=== PATIENT | female | born 1980 | race American Indian/Alaskan Native ===

== ENCOUNTER 2017-06-25 23:36 | Inpatient (IN) | payer OTHER ==
[2017-06-26 00:26] LABS: Basophils % (Auto) 0.4 % (0.0-1.8); Eosinophils % (Auto) 2.5 % (0.0-4.3); Hemoglobin 13.6 gm/dl (10.1-14.3); Mean Corpuscular HGB Conc 33 % (30-34); Mean Corpuscular Hemoglobin 30 pg (28-32); Mean Corpuscular Volume 92 fl (79-97); Platelet Count 187 K/mm3 (140-440); Red Blood Count 4.48 M/mm3 (3.65-5.03); Red Cell Distribution Width 13.2 % (13.2-15.2); White Blood Count 6.8 K/mm3 (4.5-11.0)
[2017-06-26 00:35] LABS: INR 0.99 (0.87-1.13); Partial Thromboplastin Time 29.1 Sec. (24.2-36.6)
[2017-06-26 00:55] LABS: Alanine Aminotransferase 10 units/L (7-56); Albumin 4.4 g/dL (3.9-5); Albumin/Globulin Ratio 1.1 %; Alkaline Phosphatase 75 units/L (35-129); Anion Gap 20 mmol/L; BUN/Creatinine Ratio 12.85; Blood Urea Nitrogen 9 mg/dL (7-17); Calcium 9.7 mg/dL (8.4-10.2); Carbon Dioxide 21 mmol/L (22-30); Chloride 100.5 mmol/L (98-107); Glucose 126 mg/dL (65-100); Lipase 34 units/L (13-60); Potassium 3.5 mmol/L (3.6-5.0); Sodium 138 mmol/L (137-145); Total Protein 8.5 g/dL (6.3-8.2)
[2017-06-26] MEDS ORDERED: NACL 0.9% 1000 ML 1,000 ML ONE ×2 (01:22→10:37)
[2017-06-26] MEDS ORDERED: NACL 0.9% 1000 ML 1,000 ML IV ONE ×3 (01:23→05:34)
[2017-06-26] MEDS ORDERED: K-DUR PO ONE (03:24)
[2017-06-26 03:39] LABS: Urine Drugs of Abuse Note Disclamer
[2017-06-26 03:56] LABS: Bilirubin,Urine NEG (Negative); Blood,Urine NEG (Negative); Ketones,Urine TR mg/dL (Negative); Leukocyte Esterase,Urine NEG (Negative); Mucus,Urine 3+ /HPF; Nitrite,Urine NEG (Negative); Protein,Urine <15 mg/dL mg/dL (Negative)
[2017-06-26] MEDS ORDERED: NACL ONE (03:58)
--- NOTE | 2017-06-26 05:23 | Emergency Department Report ---
ED Palpitations HPI - General Chief Complaint: Abdominal Pain Stated Complaint: YAN Time Seen by Provider: 06/26/17 03:02 Source: patient Mode of arrival: Ambulatory Limitations: No Limitations - History of Present Illness Initial Comments: 36-year-old female witha past medical history presents to the hospital complaining of shortness breath that started one half hour prior to arrival. Patient reports that she had epigastric and bilateral upper abdomen tightness and felt like "everything was shutting down". Apparently patient has had upper abdominal discomfort for the last 3 days that was intermittent. No nausea, vomiting, diarrhea, or diaphoresis reported. She reports mushy stools approximately 3 times a day the last several days. She denies calf tenderness, edema, recent travel, or history of PE/DVT. No significant pain reported at this time. Patient denies any chest pain. She does complain that her toes appeared to be numb. Patient noted to be significantly tachycardic upon arrival to the ED - Related Data Allergies Allergy/AdvReac Type Severity Reaction Status Date / Time No Known Allergies Allergy Verified 06/25/17 23:50 ED Review of Systems ROS: Stated complaint: YAN Other details as noted in HPI Comment: All other systems reviewed and negative Other: Constitutional: No fevers chills or weight loss Eyes: No eye pain visual changes or discharge ENT: No ear pain or throat pain Neck: Denies pain Respiratory: Denies cough wheezing Cardiovascular: as per hpi GI: As per HPI : Denies dysuria Musculoskeletal: Denies back pain Skin: Denies rash, lesions, erythema Neurologic: Denies headache, numbness, weakness Psychiatric: Denies suicidal ideation, hallucinations ED Past Medical Hx - Past Medical History Previous Medical History?: No - Surgical History Past Surgical History?: No - Social History Smoking Status: Never Smoker Substance Use Type: Alcohol ED Physical Exam - General Limitations: No Limitations - Other Other exam information: General: No limitations, patient is alert in no acute distress Head exam: Atraumatic, normocephalic Eyes exam: Normal appearance, pupils equal reactive to light, extraocular movements intact ENT: Moist mucous membrane, normal oropharynx Neck exam: Normal inspection, full range of motion, no meningismus nontender Respiratory exam: Clear to auscultation bilateral, no wheezes, rales, crackles Cardiovascular: Tachycardic regular rhythm Abdomen: Soft, nondistended, and nontender, with normal bowel sounds, no rebound, or guarding Extremity: Full range of motion normal inspection no deformity Back: Normal Inspection, full range of motion, no tenderness Neurologic: Alert, oriented x3, cranial nerves intact, no motor or sensory deficit Psychiatric: normal affect, normal mood Skin: Warm, dry, intact ED Course Vital Signs 06/25/17 06/26/17 06/26/17 23:50 01:13 03:37 Temperature 98.2 F 99.1 F Pulse Rate 135 H 138 H 127 H Respiratory 28 H 14 17 Rate Blood Pressure 156/99 136/93 Blood Pressure 136/91 [Right] O2 Sat by Pulse 100 100 99 Oximetry 06/26/17 03:50 Temperature Pulse Rate 128 H Respiratory Rate Blood Pressure Blood Pressure [Right] O2 Sat by Pulse Oximetry - Reevaluation(s) Reevaluation #1: 06/26/17 05:27 After 2 L of normal saline patient remains tachycardic 06/26/17 05:34 Heart rate now 117. Patient states she's feels scared like something is wrong but she feels much better than initial presentation. I would like to try Ativan however, patient is driving. A third liter since heart rate appears to be responding to IV fluid. Awaiting CT results ED Medical Decision Making - Lab Data Result diagrams: 06/26/17 00:05 06/26/17 00:05 Lab Results 06/26/17 06/26/17 06/26/17 Range/Units 00:05 00:05 00:05 WBC 6.8 (4.5-11.0) K/mm3 RBC 4.48 (3.65-5.03) M/mm3 Hgb 13.6 (10.1-14.3) gm/dl Hct 41.0 (30.3-42.9) % MCV 92 (79-97) fl MCH 30 (28-32) pg MCHC 33 (30-34) % RDW 13.2 (13.2-15.2) % Plt Count 187 (140-440) K/mm3 Lymph % (Auto) 51.8 H (13.4-35.0) % Saunders % (Auto) 6.8 (0.0-7.3) % Eos % (Auto) 2.5 (0.0-4.3) % Baso % (Auto) 0.4 (0.0-1.8) % Lymph # 3.5 (1.2-5.4) K/mm3 Saunders # 0.5 (0.0-0.8) K/mm3 Eos # 0.2 (0.0-0.4) K/mm3 Baso # 0.0 (0.0-0.1) K/mm3 Seg Neutrophils % 38.5 L (40.0-70.0) % Seg Neutrophils # 2.6 (1.8-7.7) K/mm3 PT 13.6 (12.2-14.9) Sec. INR 0.99 (0.87-1.13) APTT 29.1 (24.2-36.6) Sec. D-Dimer (0-234) ng/mlDDU Sodium 138 (137-145) mmol/L Potassium 3.5 L (3.6-5.0) mmol/L Chloride 100.5 (98-107) mmol/L Carbon Dioxide 21 L (22-30) mmol/L Anion Gap 20 mmol/L BUN 9 (7-17) mg/dL Creatinine 0.7 (0.7-1.2) mg/dL Estimated GFR > 60 ml/min BUN/Creatinine Ratio 12.85 % Glucose 126 H (65-100) mg/dL Calcium 9.7 (8.4-10.2) mg/dL Magnesium (1.7-2.3) mg/dL Total Bilirubin 0.70 (0.1-1.2) mg/dL AST 18 (5-40) units/L ALT 10 (7-56) units/L Alkaline Phosphatase 75 (35-129) units/L Troponin T < 0.010 (0.00-0.029) ng/mL Total Protein 8.5 H (6.3-8.2) g/dL Albumin 4.4 (3.9-5) g/dL Albumin/Globulin Ratio 1.1 % Lipase 34 (13-60) units/L TSH (0.270-4.200) mlU/mL Free T4 (0.76-1.46) ng/dL HCG, Qual (Negative) Urine Color (Yellow) Urine Turbidity (Clear) Urine pH (5.0-7.0) Ur Specific [place] (1.003-1.030) Urine Protein (Negative) mg/dL Urine Glucose (UA) (Negative) mg/dL Urine Ketones (Negative) mg/dL Urine Blood (Negative) Urine Nitrite (Negative) Urine Bilirubin (Negative) Urine Urobilinogen (<2.0) mg/dL Ur Leukocyte Esterase (Negative) Urine WBC (Auto) (0.0-6.0) /HPF Urine RBC (Auto) (0.0-6.0) /HPF U Epithel Cells (Auto) (0-13.0) /HPF Urine Mucus /HPF Urine Opiates Screen Urine Methadone Screen Ur Barbiturates Screen Ur Phencyclidine Scrn Ur Amphetamines Screen U Benzodiazepines Scrn Urine Cocaine Screen U Marijuana (THC) Screen Drugs of Abuse Note 06/26/17 06/26/17 06/26/17 Range/Units 00:05 02:55 03:20 WBC (4.5-11.0) K/mm3 RBC (3.65-5.03) M/mm3 Hgb (10.1-14.3) gm/dl Hct (30.3-42.9) % MCV (79-97) fl MCH (28-32) pg MCHC (30-34) % RDW (13.2-15.2) % Plt Count (140-440) K/mm3 Lymph % (Auto) (13.4-35.0) % Saunders % (Auto) (0.0-7.3) % Eos % (Auto) (0.0-4.3) % Baso % (Auto) (0.0-1.8) % Lymph # (1.2-5.4) K/mm3 Saunders # (0.0-0.8) K/mm3 Eos # (0.0-0.4) K/mm3 Baso # (0.0-0.1) K/mm3 Seg Neutrophils % (40.0-70.0) % Seg Neutrophils # (1.8-7.7) K/mm3 PT (12.2-14.9) Sec. INR (0.87-1.13) APTT (24.2-36.6) Sec. D-Dimer (0-234) ng/mlDDU Sodium (137-145) mmol/L Potassium (3.6-5.0) mmol/L Chloride (98-107) mmol/L Carbon Dioxide (22-30) mmol/L Anion Gap mmol/L BUN (7-17) mg/dL Creatinine (0.7-1.2) mg/dL Estimated GFR ml/min BUN/Creatinine Ratio % Glucose (65-100) mg/dL Calcium (8.4-10.2) mg/dL Magnesium (1.7-2.3) mg/dL Total Bilirubin (0.1-1.2) mg/dL AST (5-40) units/L ALT (7-56) units/L Alkaline Phosphatase (35-129) units/L Troponin T < 0.010 (0.00-0.029) ng/mL Total Protein (6.3-8.2) g/dL Albumin (3.9-5) g/dL Albumin/Globulin Ratio % Lipase (13-60) units/L TSH (0.270-4.200) mlU/mL Free T4 (0.76-1.46) ng/dL HCG, Qual Negative (Negative) Urine Color Yellow (Yellow) Urine Turbidity Clear (Clear) Urine pH 5.0 (5.0-7.0) Ur Specific [place] 1.028 (1.003-1.030) Urine Protein <15 mg/dl (Negative) mg/dL Urine Glucose (UA) Neg (Negative) mg/dL Urine Ketones Tr (Negative) mg/dL Urine Blood Neg (Negative) Urine Nitrite Neg (Negative) Urine Bilirubin Neg (Negative) Urine Urobilinogen 2.0 (<2.0) mg/dL Ur Leukocyte Esterase Neg (Negative) Urine WBC (Auto) 1.0 (0.0-6.0) /HPF Urine RBC (Auto) 4.0 (0.0-6.0) /HPF U Epithel Cells (Auto) 2.0 (0-13.0) /HPF Urine Mucus 3+ /HPF Urine Opiates Screen Urine Methadone Screen Ur Barbiturates Screen Ur Phencyclidine Scrn Ur Amphetamines Screen U Benzodiazepines Scrn Urine Cocaine Screen U Marijuana (THC) Screen Drugs of Abuse Note 06/26/17 06/26/17 06/26/17 Range/Units 03:20 03:20 03:20 WBC (4.5-11.0) K/mm3 RBC (3.65-5.03) M/mm3 Hgb (10.1-14.3) gm/dl Hct (30.3-42.9) % MCV (79-97) fl MCH (28-32) pg MCHC (30-34) % RDW (13.2-15.2) % Plt Count (140-440) K/mm3 Lymph % (Auto) (13.4-35.0) % Saunders % (Auto) (0.0-7.3) % Eos % (Auto) (0.0-4.3) % Baso % (Auto) (0.0-1.8) % Lymph # (1.2-5.4) K/mm3 Saunders # (0.0-0.8) K/mm3 Eos # (0.0-0.4) K/mm3 Baso # (0.0-0.1) K/mm3 Seg Neutrophils % (40.0-70.0) % Seg Neutrophils # (1.8-7.7) K/mm3 PT (12.2-14.9) Sec. INR (0.87-1.13) APTT (24.2-36.6) Sec. D-Dimer 545.72 H (0-234) ng/mlDDU Sodium (137-145) mmol/L Potassium (3.6-5.0) mmol/L Chloride (98-107) mmol/L Carbon Dioxide (22-30) mmol/L Anion Gap mmol/L BUN (7-17) mg/dL Creatinine (0.7-1.2) mg/dL Estimated GFR ml/min BUN/Creatinine Ratio % Glucose (65-100) mg/dL Calcium (8.4-10.2) mg/dL Magnesium (1.7-2.3) mg/dL Total Bilirubin (0.1-1.2) mg/dL AST (5-40) units/L ALT (7-56) units/L Alkaline Phosphatase (35-129) units/L Troponin T 0.010 (0.00-0.029) ng/mL Total Protein (6.3-8.2) g/dL Albumin (3.9-5) g/dL Albumin/Globulin Ratio % Lipase (13-60) units/L TSH 2.170 (0.270-4.200) mlU/mL Free T4 1.18 (0.76-1.46) ng/dL HCG, Qual (Negative) Urine Color (Yellow) Urine Turbidity (Clear) Urine pH (5.0-7.0) Ur Specific [place] (1.003-1.030) Urine Protein (Negative) mg/dL Urine Glucose (UA) (Negative) mg/dL Urine Ketones (Negative) mg/dL Urine Blood (Negative) Urine Nitrite (Negative) Urine Bilirubin (Negative) Urine Urobilinogen (<2.0) mg/dL Ur Leukocyte Esterase (Negative) Urine WBC (Auto) (0.0-6.0) /HPF Urine RBC (Auto) (0.0-6.0) /HPF U Epithel Cells (Auto) (0-13.0) /HPF Urine Mucus /HPF Urine Opiates Screen Urine Methadone Screen Ur Barbiturates Screen Ur Phencyclidine Scrn Ur Amphetamines Screen U Benzodiazepines Scrn Urine Cocaine Screen U Marijuana (THC) Screen Drugs of Abuse Note 06/26/17 06/26/17 Range/Units 03:20 03:20 WBC (4.5-11.0) K/mm3 RBC (3.65-5.03) M/mm3 Hgb (10.1-14.3) gm/dl Hct (30.3-42.9) % MCV (79-97) fl MCH (28-32) pg MCHC (30-34) % RDW (13.2-15.2) % Plt Count (140-440) K/mm3 Lymph % (Auto) (13.4-35.0) % Saunders % (Auto) (0.0-7.3) % Eos % (Auto) (0.0-4.3) % Baso % (Auto) (0.0-1.8) % Lymph # (1.2-5.4) K/mm3 Saunders # (0.0-0.8) K/mm3 Eos # (0.0-0.4) K/mm3 Baso # (0.0-0.1) K/mm3 Seg Neutrophils % (40.0-70.0) % Seg Neutrophils # (1.8-7.7) K/mm3 PT (12.2-14.9) Sec. INR (0.87-1.13) APTT (24.2-36.6) Sec. D-Dimer (0-234) ng/mlDDU Sodium (137-145) mmol/L Potassium (3.6-5.0) mmol/L Chloride (98-107) mmol/L Carbon Dioxide (22-30) mmol/L Anion Gap mmol/L BUN (7-17) mg/dL Creatinine (0.7-1.2) mg/dL Estimated GFR ml/min BUN/Creatinine Ratio % Glucose (65-100) mg/dL Calcium (8.4-10.2) mg/dL Magnesium 1.90 (1.7-2.3) mg/dL Total Bilirubin (0.1-1.2) mg/dL AST (5-40) units/L ALT (7-56) units/L Alkaline Phosphatase (35-129) units/L Troponin T (0.00-0.029) ng/mL Total Protein (6.3-8.2) g/dL Albumin (3.9-5) g/dL Albumin/Globulin Ratio % Lipase (13-60) units/L TSH (0.270-4.200) mlU/mL Free T4 (0.76-1.46) ng/dL HCG, Qual (Negative) Urine Color (Yellow) Urine Turbidity (Clear) Urine pH (5.0-7.0) Ur Specific [place] (1.003-1.030) Urine Protein (Negative) mg/dL Urine Glucose (UA) (Negative) mg/dL Urine Ketones (Negative) mg/dL Urine Blood (Negative) Urine Nitrite (Negative) Urine Bilirubin (Negative) Urine Urobilinogen (<2.0) mg/dL Ur Leukocyte Esterase (Negative) Urine WBC (Auto) (0.0-6.0) /HPF Urine RBC (Auto) (0.0-6.0) /HPF U Epithel Cells (Auto) (0-13.0) /HPF Urine Mucus /HPF Urine Opiates Screen Presumptive negative Urine Methadone Screen Presumptive negative Ur Barbiturates Screen Presumptive negative Ur Phencyclidine Scrn Presumptive negative Ur Amphetamines Screen Presumptive negative U Benzodiazepines Scrn Presumptive negative Urine Cocaine Screen Presumptive negative U Marijuana (THC) Screen Presumptive negative Drugs of Abuse Note Disclamer - EKG Data -: EKG Interpreted by Me (sinus tach rate [address] elevation or T-wave inversion) - EKG Data When compared to previous EKG there are: previous EKG unavailable - Radiology Data Radiology results: report reviewed, image reviewed (chest x-ray PA and lateral: No acute findings, right upper lung metallic foreign body does not appear to be within lung possible artifact) ct angio chest: naf CT abdomen and pelvis IV contrast: No acute findings - Medical Decision Making Cause of tachycardia unknown. Anxiety is in the differential. Patient will be admitted for further evaluation. Hospitalist informed to requests brige orders - Differential Diagnosis PE, anxiety, thyroid disease, infection, anemia Critical Care Time: No Critical care attestation.: If time is entered above; I have spent that time in minutes in the direct care of this critically ill patient, excluding procedure time. ED Disposition Clinical Impression: Sinus tachycardia Disposition: DC-[id number] OP ADMIT IP TO THIS HOSP Is pt being admited?: Yes Condition: Stable Time of Disposition: 06:06 (Dr Colby/hosp)
--- NOTE | 2017-06-26 05:57 | Cat Scan Report ---
FINAL REPORT PROCEDURE: CT ANGIO CHEST TECHNIQUE: Computerized tomographic angiography of the chest was performed after the IV injection of iodinated nonionic contrast including image processing. The image data was postprocessed using 2-dimensional multiplanar reformatted (MPR) and 3-dimensional (MIP and/or volume rendered) techniques. HISTORY: elevated ddimer, sob COMPARISON: No prior studies are available for comparison. FINDINGS: Heart and pericardium: Normal. Thoracic aorta: Normal. Pulmonary vasculature: Normal. Lymph nodes: No enlarged thoracic lymph nodes. Lungs: Normal. Pleural space: No effusion, thickening, or pneumothorax. Musculoskeletal structures: No significant abnormality. Upper abdominal structures: No significant abnormality. There is a metallic foreign body in the right anterior chest wall. IMPRESSION: There is no thoracic aortic aneurysm or dissection. There is no pulmonary embolism. There is no acute lung disease.
--- NOTE | 2017-06-26 06:08 | Cat Scan Report ---
FINAL REPORT PROCEDURE: CT ABDOMEN PELVIS W CON TECHNIQUE: Computerized axial tomography of the abdomen and pelvis was performed after the IV injection of iodinated nonionic contrast. HISTORY: upper abd pain, tachycardia COMPARISON: No prior studies are available for comparison. FINDINGS: Visualized lower thorax: No significant abnormality. Liver: Normal size and attenuation. Spleen: Normal size and attenuation. Gallbladder and biliary system: Normal. Pancreas: Normal. Adrenals: Normal. Kidneys: Normal. GI tract: There is no bowel obstruction, colitis or enteritis. The appendix is normal.. Lymph nodes and mesentery: Normal. Vasculature: Normal. Bladder: Normal. Reproductive organs: Uterus and ovaries are unremarkable.. Peritoneum: There is no ascites, free air, abscess or adenopathy. There is minimal nonspecific free pelvic fluid.. Musculoskeletal structures: No significant abnormality. Other: There is a small ventral hernia containing fat only.. IMPRESSION: No acute intra-abdominal process is identified.
--- NOTE | 2017-06-26 07:19 | Admit Criteria Form ---
Admission Criteria Documentation: TELEMETRY CARE Telemetry Admission Guidelines (Place 'X' for any and all applicable criteria): Admission to telemetry [A] may be indicated for ANY ONE of the following(1)(2)(3 )(4)(5): [X]I. Cardiac disease, including ANY ONE of the following (9)(10)(11)(12)(13 ): [ ]a) Postacute NH [ ]b) Low-risk patients with ST-segment elevation NH who have undergone successful percutaneous coronary intervention [ ]c) Unstable angina [ ]d) Suspected NH (until it is ruled out) [ ]e) Post cardiac surgery (first 48 to 72 hours unless complications occur) [X]f) Acute arrhythmias (including significant tachycardia or bradycardia) [B] [ ]g) Firing of an implantable cardioverter defibrillator [C] [ ]h) Suspected pacemaker or implantable cardioverter defibrillator malfunction (10) [ ]i) New administration or adjustment of an antiarrhythmic drug [D ] [ ]j) Child admitted for acute congestive heart failure [ ]j) Long QT syndrome [ ]k) Advanced heart block (eg, second-degree Mobitz type II, third- degree heart block) [ ]l) Acute myocarditis or pericarditis [ ]m) Short-term (ambulatory or inpatient) monitoring after a cardiac procedure as indicated by ANY ONE of the following [E]: [ ]i) Electrophysiologic studies [ ]ii) Percutaneous coronary intervention with stent placement [ ]iii) Pacemaker placement with cardiac conduction defect [ ]iv) Implantable cardiac defibrillator placement [ ]II. Drug overdose or poisoning with substance that causes arrhythmias or QT prolongation (eg, phenothiazines, sympathomimetic agents, cyclic antidepressants, digitalis, antiarrhythmic drugs)(15) [ ]III. Short-term (ambulatory or inpatient) monitoring after therapeutic or diagnostic procedure requiring conscious sedation or anesthesia (eg, endoscopy, elective cardioversion) [ ]IV. Acute cerebrovascular even[F](18) [ ]V. Massive blood transfusion (eg, at least 10 units of packed red blood cells in 24 hours) [ ]. Variceal bleeding after endoscopy, sclerotherapy, or IV vasopressin [ ]VII. Uncorrected electrolyte abnormalities associated with an increased risk of dangerous arrhythmia [G]; examples include [ ]a) Hyperkalemia with attributable ECG changes [ ]b) Potassium greater than 6.5 mmol/L (mEq/L) in a patient without history of chronic renal disease [ ]c) Prolonged QT attributed to hypokalemia, hypomagnesemia, or hypocalcemia [ ]VIII.Unexplained syncope or other neurologic event suspected of being due to arrhythmia due to a finding that increases risk; examples include(19)(20)(21): [ ]a) High-risk ECG findings (eg, bifascicular block, bradycardia, abnormal QT interval, ventricular pre- excitation) [ ]b) History of previous syncope due to arrhythmia [ ]c) Abnormal ventricular function (eg, reduced ejection fraction ) [ ]d) Exertional or supine syncope [ ]e) Concerning syncope characteristics (eg, sudden loss of consciousness without prodrome) [ ]f) Family history of sudden [ ]g) Use of arrhythmogenic medication [ ]h) Suspected cardiac ischemia [ ]i) Known channelopathy (eg, long QT syndrome, Brugada syndrome, or catecholaminergic paroxysmal ventricular tachycardia) [ ]j) Known structural heart disease (eg, hypertrophic cardiomyopathy , severe valvular disease) [ ]k) Palpitations preceding syncope The original [employer] content created by [employer] has been revised. The portions of the content which have been revised are identified through the use of italic text or in bold, and [facility] has neither reviewed nor approved the modified material. All other unmodified content is copyright [employer]. Please see references footnoted in the original [employer] edition 2016 Admission Criteria Met: Yes
--- NOTE | 2017-06-26 07:29 | XRay Report ---
Chest 2 views: History: Palpitation. Findings: Normal cardiomediastinal silhouette. Trachea is midline. No consolidation, pneumothorax or pleural effusion. Impression: No acute cardiopulmonary findings.
--- NOTE | 2017-06-26 08:51 | History and Physical Report ---
<MILAGROS CLEANING - Last Filed: 06/26/17 14:58> History of Present Illness Date of examination: 06/26/17 Date of admission: 06/26/2017 Chief complaint: Shortness of breath and lower back pain History of present illness: 36-year-old female no know past medical history presents to the hospital complaining of shortness breath that started one half hour prior to arrival. Patient reported epigastric abdominal tightness and shortness of breath. The abdominal tightness has been gradually worsening over the past 2-3 days. She located in the epigastric region and right upper quadrant of the abdomen. It does not radiate. The pain is relatively constant throughout the day and night but does vary in severity. She rates the pain as 6/10 at its worst. She has not tried taking any medicines to relieve the tightness. The pain is not alleviated with rest. She denies nausea, vomiting, diarrhea, or diaphoresis. She denies calf tenderness, edema, recent travel, or history of PE/DVT. Patient denies any chest pain. Patient noted to be significantly tachycardia upon arrival to the ED Past History Past Medical History: No medical history Past Surgical History: No surgical history Social history: alcohol abuse. denies: smoking Family history: CAD, hypertension Medications and Allergies Allergies Allergy/AdvReac Type Severity Reaction Status Date / Time Penicillins Allergy Intermediate Hives Verified 06/26/17 20:34 Home Medications Medication Instructions Recorded Confirmed Last Taken Type No Known Home Medications [No 06/26/17 06/26/17 Unknown History Reported Home Medications] Review of Systems Constitutional: no weight loss, no weight gain, no fever, no chills Ears, nose, mouth and throat: deferred, no ear pain, no ear discharge, no decreased hearing, no nose pain, no nasal congestion, no nasal discharge Breasts: no change in shape, no swelling Cardiovascular: shortness of breath, no chest pain, no orthopnea, no palpitations, no syncope, no lightheadedness Respiratory: no cough, no cough with sputum, no excessive sputum, no hemoptysis , no dyspnea on exertion Gastrointestinal: no vomiting, no diarrhea, no constipation, no change in bowel habits Genitourinary Female: no dysmenorrhea, no pelvic pain, no flank pain, no menorrhagia, no dysuria, no urinary frequency Menstruation: no premenarcheal, no post hysterectomy, no ammenorrhea Rectal: no pain, no incontinence Musculoskeletal: no neck stiffness, no neck pain, no shooting arm pain, no arm numbness/tingling Integumentary: no pruritis, no redness, no sores, no wounds Neurological: no paralysis, no weakness, no parathesias Psychiatric: no change in sleep habits, no sleep disturbances, no insomnia Endocrine: no cold intolerance, no heat intolerance, no polyphagia Hematologic/Lymphatic: no easy bruising, no easy bleeding Allergic/Immunologic: no urticaria, no allergic rhinitis Exam - Constitutional Vitals: Temp Pulse Resp BP Pulse Ox 98.6 F 126 H 20 141/82 99 06/26/17 07:35 06/26/17 07:35 06/26/17 07:35 06/26/17 07:10 06/26/17 07:35 General appearance: Present: no acute distress - EENT Eyes: Present: PERRL ENT: hearing intact - Neck Neck: Present: supple - Respiratory Respiratory effort: normal Respiratory: bilateral: CTA - Cardiovascular Heart rate: 97 Rhythm: regular Heart Sounds: Present: S1 & S2 - Extremities Extremities: no ischemia Peripheral Pulses: within normal limits - Abdominal General gastrointestinal: Present: soft, non-tender Female genitourinary: Present: deferred - Rectal Rectal Exam: deferred - Integumentary Integumentary: Present: clear, warm, dry - Musculoskeletal Musculoskeletal: strength equal bilaterally - Psychiatric Psychiatric: appropriate mood/affect - Neurologic Neurologic: CNII-XII intact - Allied Health Allied health notes reviewed: nursing Results - Labs CBC & Chem 7: 06/26/17 00:05 06/26/17 00:05 Labs: Laboratory Last Values WBC 6.8 K/mm3 (4.5-11.0) 06/26/17 00:05 RBC 4.48 M/mm3 (3.65-5.03) 06/26/17 00:05 Hgb 13.6 gm/dl (10.1-14.3) 06/26/17 00:05 Hct 41.0 % (30.3-42.9) 06/26/17 00:05 MCV 92 fl (79-97) 06/26/17 00:05 MCH 30 pg (28-32) 06/26/17 00:05 MCHC 33 % (30-34) 06/26/17 00:05 RDW 13.2 % (13.2-15.2) 06/26/17 00:05 Plt Count 187 K/mm3 (140-440) 06/26/17 00:05 Lymph % (Auto) 51.8 % (13.4-35.0) H 06/26/17 00:05 [place] % (Auto) 6.8 % (0.0-7.3) 06/26/17 00:05 Eos % (Auto) 2.5 % (0.0-4.3) 06/26/17 00:05 Baso % (Auto) 0.4 % (0.0-1.8) 06/26/17 00:05 Lymph # 3.5 K/mm3 (1.2-5.4) 06/26/17 00:05 [place] # 0.5 K/mm3 (0.0-0.8) 06/26/17 00:05 Eos # 0.2 K/mm3 (0.0-0.4) 06/26/17 00:05 Baso # 0.0 K/mm3 (0.0-0.1) 06/26/17 00:05 Seg Neutrophils % 38.5 % (40.0-70.0) L 06/26/17 00:05 Seg Neutrophils # 2.6 K/mm3 (1.8-7.7) 06/26/17 00:05 PT 13.6 Sec. (12.2-14.9) 06/26/17 00:05 INR 0.99 (0.87-1.13) 06/26/17 00:05 APTT 29.1 Sec. (24.2-36.6) 06/26/17 00:05 D-Dimer 545.72 ng/mlDDU (0-234) H 06/26/17 03:20 Sodium 138 mmol/L (137-145) 06/26/17 00:05 Potassium 3.5 mmol/L (3.6-5.0) L 06/26/17 00:05 Chloride 100.5 mmol/L (98-107) 06/26/17 00:05 Carbon Dioxide 21 mmol/L (22-30) L 06/26/17 00:05 Anion Gap 20 mmol/L 06/26/17 00:05 BUN 9 mg/dL (7-17) 06/26/17 00:05 Creatinine 0.7 mg/dL (0.7-1.2) 06/26/17 00:05 Estimated GFR > 60 ml/min 06/26/17 00:05 BUN/Creatinine Ratio 12.85 % 06/26/17 00:05 Glucose 126 mg/dL (65-100) H 06/26/17 00:05 Calcium 9.7 mg/dL (8.4-10.2) 06/26/17 00:05 Magnesium 1.90 mg/dL (1.7-2.3) 06/26/17 03:20 Total Bilirubin 0.70 mg/dL (0.1-1.2) 06/26/17 00:05 AST 18 units/L (5-40) 06/26/17 00:05 ALT 10 units/L (7-56) 06/26/17 00:05 Alkaline Phosphatase 75 units/L (35-129) 06/26/17 00:05 Troponin T 0.010 ng/mL (0.00-0.029) 06/26/17 03:20 Total Protein 8.5 g/dL (6.3-8.2) H 06/26/17 00:05 Albumin 4.4 g/dL (3.9-5) 06/26/17 00:05 Albumin/Globulin Ratio 1.1 % 06/26/17 00:05 Lipase 34 units/L (13-60) 06/26/17 00:05 TSH 2.170 mlU/mL (0.270-4.200) 06/26/17 03:20 Free T4 1.18 ng/dL (0.76-1.46) 06/26/17 03:20 HCG, Qual Negative (Negative) 06/26/17 00:05 Urine Color Yellow (Yellow) 06/26/17 03:20 Urine Turbidity Clear (Clear) 06/26/17 03:20 Urine pH 5.0 (5.0-7.0) 06/26/17 03:20 Ur Specific [place] 1.028 (1.003-1.030) 06/26/17 03:20 Urine Protein <15 mg/dl mg/dL (Negative) 06/26/17 03:20 Urine Glucose (UA) Neg mg/dL (Negative) 06/26/17 03:20 Urine Ketones Tr mg/dL (Negative) 06/26/17 03:20 Urine Blood Neg (Negative) 06/26/17 03:20 Urine Nitrite Neg (Negative) 06/26/17 03:20 Urine Bilirubin Neg (Negative) 06/26/17 03:20 Urine Urobilinogen 2.0 mg/dL (<2.0) 06/26/17 03:20 Ur Leukocyte Esterase Neg (Negative) 06/26/17 03:20 Urine WBC (Auto) 1.0 /HPF (0.0-6.0) 06/26/17 03:20 Urine RBC (Auto) 4.0 /HPF (0.0-6.0) 06/26/17 03:20 U Epithel Cells (Auto) 2.0 /HPF (0-13.0) 06/26/17 03:20 Urine Mucus 3+ /HPF 06/26/17 03:20 Urine Opiates Screen Presumptive negative 06/26/17 03:20 Urine Methadone Screen Presumptive negative 06/26/17 03:20 Ur Barbiturates Screen Presumptive negative 06/26/17 03:20 Ur Phencyclidine Scrn Presumptive negative 06/26/17 03:20 Ur Amphetamines Screen Presumptive negative 06/26/17 03:20 U Benzodiazepines Scrn Presumptive negative 06/26/17 03:20 Urine Cocaine Screen Presumptive negative 06/26/17 03:20 U Marijuana (THC) Screen Presumptive negative 06/26/17 03:20 Drugs of Abuse Note Disclamer 06/26/17 03:20 Assessment and Plan Assessment and plan: Tachycardia We will admit to telemetry for continuous cardiac monitoring 12 lead EKG obtained, we also get another EkG in ordered for any changes that have taken since the first obtained. IV fluid hydration Supportive care Hypokalemia Replaced with 40meq potassium Closely monitor electrolytes Elevated d-dimer CTA no evidence of pulmonary embolism or acute lung disease. Unremarkable chest x-ray, Normal CT of abdomen/pelvic, there is no aortic aneurysm Unremarkable VL bilateral LE venous Doppler Alcohol abuse Alcohol use counseling done patient strongly advised to quit and patient agreed upon course of action. DVT prophylaxis Lovenox Advance Directives: Yes VTE prophylaxis?: Chemical Contraindication Mechanical VTE Prophylaxis: Treatment Not Indicated Plan of care discussed with patient/family: Yes <JODEE DAWN - Last Filed: 06/27/17 01:35> History of Present Illness Date of admission: 06/26/17 06:06 Medications and Allergies Active Meds: Active Medications Enoxaparin Sodium (Lovenox) 40 mg SUB-Q DAILY KARINA Last Admin: 06/26/17 10:45 Dose: 40 mg Sodium Chloride (Nacl 0.9% 1000 Ml) 1,000 mls @ 75 mls/hr IV DIRECT KARINA Last Admin: 06/26/17 10:50 Dose: 75 mls/hr Morphine Sulfate (Morphine) 2 mg IV Q4H PRN PRN Reason: Pain, Moderate (4-6) Ondansetron HCl (Zofran) 4 mg IV Q4H PRN PRN Reason: Nausea And Vomiting Last Admin: 06/26/17 23:49 Dose: 4 mg Oxycodone/Acetaminophen (Percocet 5/325) 1 tab PO Q4H PRN PRN Reason: Pain, Moderate (4-6) Last Admin: 06/26/17 22:25 Dose: 1 tab Exam - Constitutional Vitals: Temp Pulse Resp BP Pulse Ox 97.8 F 85 18 123/83 99 06/27/17 00:43 06/27/17 00:43 06/27/17 00:43 06/27/17 00:43 06/27/17 00:43 Results - Labs CBC & Chem 7: 06/26/17 00:05 06/26/17 00:05 Labs: Laboratory Last Values WBC 6.8 K/mm3 (4.5-11.0) 06/26/17 00:05 RBC 4.48 M/mm3 (3.65-5.03) 06/26/17 00:05 Hgb 13.6 gm/dl (10.1-14.3) 06/26/17 00:05 Hct 41.0 % (30.3-42.9) 06/26/17 00:05 MCV 92 fl (79-97) 06/26/17 00:05 MCH 30 pg (28-32) 06/26/17 00:05 MCHC 33 % (30-34) 06/26/17 00:05 RDW 13.2 % (13.2-15.2) 06/26/17 00:05 Plt Count 187 K/mm3 (140-440) 06/26/17 00:05 Lymph % (Auto) 51.8 % (13.4-35.0) H 06/26/17 00:05 [place] % (Auto) 6.8 % (0.0-7.3) 06/26/17 00:05 Eos % (Auto) 2.5 % (0.0-4.3) 06/26/17 00:05 Baso % (Auto) 0.4 % (0.0-1.8) 06/26/17 00:05 Lymph # 3.5 K/mm3 (1.2-5.4) 06/26/17 00:05 [place] # 0.5 K/mm3 (0.0-0.8) 06/26/17 00:05 Eos # 0.2 K/mm3 (0.0-0.4) 06/26/17 00:05 Baso # 0.0 K/mm3 (0.0-0.1) 06/26/17 00:05 Seg Neutrophils % 38.5 % (40.0-70.0) L 06/26/17 00:05 Seg Neutrophils # 2.6 K/mm3 (1.8-7.7) 06/26/17 00:05 PT 13.6 Sec. (12.2-14.9) 06/26/17 00:05 INR 0.99 (0.87-1.13) 06/26/17 00:05 APTT 29.1 Sec. (24.2-36.6) 06/26/17 00:05 D-Dimer 545.72 ng/mlDDU (0-234) H 06/26/17 03:20 Sodium 138 mmol/L (137-145) 06/26/17 00:05 Potassium 3.5 mmol/L (3.6-5.0) L 06/26/17 00:05 Chloride 100.5 mmol/L (98-107) 06/26/17 00:05 Carbon Dioxide 21 mmol/L (22-30) L 06/26/17 00:05 Anion Gap 20 mmol/L 06/26/17 00:05 BUN 9 mg/dL (7-17) 06/26/17 00:05 Creatinine 0.7 mg/dL (0.7-1.2) 06/26/17 00:05 Estimated GFR > 60 ml/min 06/26/17 00:05 BUN/Creatinine Ratio 12.85 % 06/26/17 00:05 Glucose 126 mg/dL (65-100) H 06/26/17 00:05 Calcium 9.7 mg/dL (8.4-10.2) 06/26/17 00:05 Magnesium 1.90 mg/dL (1.7-2.3) 06/26/17 03:20 Total Bilirubin 0.70 mg/dL (0.1-1.2) 06/26/17 00:05 AST 18 units/L (5-40) 06/26/17 00:05 ALT 10 units/L (7-56) 06/26/17 00:05 Alkaline Phosphatase 75 units/L (35-129) 06/26/17 00:05 Troponin T 0.010 ng/mL (0.00-0.029) 06/26/17 03:20 Total Protein 8.5 g/dL (6.3-8.2) H 06/26/17 00:05 Albumin 4.4 g/dL (3.9-5) 06/26/17 00:05 Albumin/Globulin Ratio 1.1 % 06/26/17 00:05 Lipase 34 units/L (13-60) 06/26/17 00:05 TSH 2.170 mlU/mL (0.270-4.200) 06/26/17 03:20 Free T4 1.18 ng/dL (0.76-1.46) 06/26/17 03:20 HCG, Qual Negative (Negative) 06/26/17 00:05 Urine Color Yellow (Yellow) 06/26/17 03:20 Urine Turbidity Clear (Clear) 06/26/17 03:20 Urine pH 5.0 (5.0-7.0) 06/26/17 03:20 Ur Specific [place] 1.028 (1.003-1.030) 06/26/17 03:20 Urine Protein <15 mg/dl mg/dL (Negative) 06/26/17 03:20 Urine Glucose (UA) Neg mg/dL (Negative) 06/26/17 03:20 Urine Ketones Tr mg/dL (Negative) 06/26/17 03:20 Urine Blood Neg (Negative) 06/26/17 03:20 Urine Nitrite Neg (Negative) 06/26/17 03:20 Urine Bilirubin Neg (Negative) 06/26/17 03:20 Urine Urobilinogen 2.0 mg/dL (<2.0) 06/26/17 03:20 Ur Leukocyte Esterase Neg (Negative) 06/26/17 03:20 Urine WBC (Auto) 1.0 /HPF (0.0-6.0) 06/26/17 03:20 Urine RBC (Auto) 4.0 /HPF (0.0-6.0) 06/26/17 03:20 U Epithel Cells (Auto) 2.0 /HPF (0-13.0) 06/26/17 03:20 Urine Mucus 3+ /HPF 06/26/17 03:20 Urine Opiates Screen Presumptive negative 06/26/17 03:20 Urine Methadone Screen Presumptive negative 06/26/17 03:20 Ur Barbiturates Screen Presumptive negative 06/26/17 03:20 Ur Phencyclidine Scrn Presumptive negative 06/26/17 03:20 Ur Amphetamines Screen Presumptive negative 06/26/17 03:20 U Benzodiazepines Scrn Presumptive negative 06/26/17 03:20 Urine Cocaine Screen Presumptive negative 06/26/17 03:20 U Marijuana (THC) Screen Presumptive negative 06/26/17 03:20 Drugs of Abuse Note Disclamer 06/26/17 03:20 Assessment and Plan Assessment and plan: I saw and evaluated the patient on 06/26/17. I agree with the findings and the plan of care as documented in the Nurse Practitioner's~note, with the following corrections and additions. Tachycardia, likely due to anxiety and alcohol abuse, all workup so far negative. She states not comfortable to go home. States something must be wrong with her. Pt will be discharge after o/n monitoring.
[2017-06-26] MEDS ORDERED: TYLENOL PO PRN (09:00)
[2017-06-26] MEDS ORDERED: ZOFRAN IV PRN (09:00)
[2017-06-26] MEDS ORDERED: DULCOLAX PR PRN (09:00)
[2017-06-26] MEDS ORDERED: LOVENOX SUB-Q ONE (10:36)
[2017-06-26] MEDS: LOVENOX SUB-Q SCH (10:45)
[2017-06-26] MEDS: NACL 0.9% 1000 ML 1,000 ML IV SCH (10:50)
[2017-06-26] MEDS ORDERED: MORPHINE IV PRN (13:49)
[2017-06-26] MEDS ORDERED: PERCOCET 5/325 PO PRN (14:53)
[2017-06-27 05:13] LABS: Hematocrit 35.1 % (30.3-42.9); Mean Corpuscular HGB Conc 34 % (30-34); Mean Corpuscular Hemoglobin 31 pg (28-32); Mean Corpuscular Volume 90 fl (79-97); Platelet Count 169 K/mm3 (140-440); Red Blood Count 3.89 M/mm3 (3.65-5.03); Red Cell Distribution Width 13.6 % (13.2-15.2); White Blood Count 4.8 K/mm3 (4.5-11.0)
[2017-06-27 05:27] LABS: Anion Gap 16 mmol/L; BUN/Creatinine Ratio 8.57; Blood Urea Nitrogen 6 mg/dL (7-17); Calcium 8.4 mg/dL (8.4-10.2); Carbon Dioxide 23 mmol/L (22-30); Chloride 104.1 mmol/L (98-107); Glucose 85 mg/dL (65-100); Sodium 139 mmol/L (137-145)
[2017-06-27] MEDS: NACL 0.9% 1000 ML 1,000 ML IV SCH (06:06)
[2017-06-27 06:50] LABS: Basophils % (Manual) 0 % (0.0-1.8); Blastocytes % (Manual) 0 %; Eosinophils % (Manual) 0 % (0.0-4.3)
[2017-06-27 06:52] LABS: Anisocytosis 1+; Diff Status Complete
--- NOTE | 2017-06-27 09:05 | Vascular Lab Report ---
LOWER EXTREMITY VENOUS DUPLEX: REASON FOR EXAM: Elevated d-dimer. COMMENTS ON THE RIGHT: All veins visualized are freely compressible without evidence of internal echogenicity. Flow is spontaneous and phasic throughout. COMMENTS ON THE LEFT: All veins visualized are freely compressible without evidence of internal echogenicity. Flow is spontaneous and phasic throughout. IMPRESSION: No evidence of acute or chronic deep venous thrombosis in either lower extremity.
[2017-06-27] MEDS: LOVENOX SUB-Q SCH (10:48)
--- NOTE | 2017-06-27 10:51 | Discharge Summary ---
<MIL[employer]ROS CLEANING - Last Filed: 06/27/17 14:37> Providers - Providers Date of Admission: 06/26/17 06:06 Date of discharge: 06/27/17 Attending physician: JODEE DAWN Primary care physician: LICENSED MASSAGE PRACTITIONER Hospitalization Condition: Good Hospital course: 36-year-old female no know past medical history presents to the hospital complaining of shortness breath that started one half hour prior to arrival. Patient reported epigastric abdominal tightness and shortness of breath. Patient was diagnosed with Tachycardia, Hypokalemia and Elevated d-dimer. CTA no evidence of pulmonary embolism or acute lung disease. Unremarkable chest x- ray. Normal CT of abdomen/pelvic, there is no aortic aneurysm.Unremarkable VL bilateral LE venous Doppler. Patient Tachycardia most likely due to anxiety and alcohol abuse. Patient currently sinus rhythm with HR of 83. She was treated with IV fluid hydration, oral potassium supplement. Patient is clinically improved and stable for discharge. Also Alcohol abuse counseling done, I have again instructed her and need to avoid alcohol use and possibly a role in AA for which the patient verbalized understanding. Patient advised to follow-up with her primary care provider. Discharge Diagnosed Tachycardia Hypokalemia Elevated d-dimer Alcohol abuse Disposition: DC-30 STILL A PATIENT Time spent for discharge: 33 minutes Core Measure Documentation - Palliative Care Palliative Care/ Comfort Measures: Not Applicable - Core Measures Any of the following diagnoses?: none Exam - Constitutional Vitals: Temp Pulse Resp BP Pulse Ox 98.3 F 76 16 135/95 100 06/27/17 08:41 06/27/17 08:41 06/27/17 08:41 06/27/17 08:41 06/27/17 08:41 General appearance: Present: no acute distress - EENT Eyes: Present: PERRL ENT: hearing intact - Neck Neck: Present: supple - Respiratory Respiratory effort: normal Respiratory: bilateral: CTA - Cardiovascular Heart rate: 76 Rhythm: regular Heart Sounds: Present: S1 & S2 - Extremities Extremities: no ischemia Peripheral Pulses: within normal limits - Abdominal General gastrointestinal: Present: soft, non-tender - Rectal Rectal Exam: deferred - Integumentary Integumentary: Present: clear, warm, dry - Musculoskeletal Musculoskeletal: strength equal bilaterally - Psychiatric Psychiatric: appropriate mood/affect - Neurologic Neurologic: CNII-XII intact - Allied Health Allied health notes reviewed: nursing Plan Activity: no restrictions Weight Bearing Status: Weight Bear as Tolerated Diet: low fat, low cholesterol Follow up with: PRIMARY CARE, [Primary Care Provider] - 7 Days <JODEE DAWN - Last Filed: 06/28/17 12:17> Providers - Providers Date of Admission: 06/26/17 06:06 Attending physician: JODEE DAWN Primary care physician: LICENSED MASSAGE PRACTITIONER Hospitalization Hospital course: I saw and evaluated the patient. I agree with the findings and the plan of care as documented in the Nurse Practitioner's~note. Exam - Constitutional Vitals: Temp Pulse Resp BP Pulse Ox 98.1 F 94 H 16 119/73 100 06/27/17 12:27 06/27/17 12:27 06/27/17 12:27 06/27/17 12:27 06/27/17 12:27
[2017-06-27 12:29] VITALS: BP 119/73
== END 2017-06-27 15:43 | disposition home or self-care (01) | DRG 310 ==
LOC: ED 23:36 → 4A 06-26 06:06
PROVIDERS: ADMIT Internal Medicine; ATTEND Internal Medicine
DX: R00.0 Tachycardia, unspecified (principal); E87.6 Hypokalemia; F10.10 Alcohol abuse, uncomplicated; Z82.49 Family history of ischemic heart disease and other diseases of the circulatory system; Z88.0 Allergy status to penicillin
CPT/HCPCS: 36415; 71020; 71275; 74177; 80048; 80053; 80307; 81001; 83690; 83735; 84439; 84443; 84484; 84703; 85007; 85025; 85379; 85610; 85730; 93005; 93010; 93970; 96360; 96361; J1650; J2270; J2405; J7030; Q9967